=== PATIENT | female | born 1980 | race Asian ===

== ENCOUNTER 2022-07-26 08:41 | Outpatient (CLI) | payer OTHER, SELFPAY ==
[2022-07-26 14:36] LABS: Cholesterol* 179 mg/dL (90-199); Triglycerides* 120 mg/dL (40-149)
[2022-07-26 14:37] LABS: HDL Cholesterol* 41 mg/dL (>=50); LDL Cholesterol Calculated 114 mg/dL (<100)
== END 2022-07-26 08:42 | disposition home or self-care (01) ==
LOC: FRMREF 08:42
PROVIDERS: Visit Provider Registered Nurse
DX: E78.5 Hyperlipidemia, unspecified (principal)
CPT/HCPCS: 80061

== ENCOUNTER 2022-11-27 10:32 | Outpatient (CLI) | payer OTHER, SELFPAY ==
--- NOTE | 2022-11-27 10:45 | CRLHL7_ITS ---
For Patients: As a result of the Cures Act, medical imaging exams and procedure reports are released immediately into your electronic medical record. You may view this report before your referring provider. If you have questions, please contact your health care provider. DIGITAL DIAGNOSTIC BILATERAL MAMMOGRAM USING TOMOSYNTHESIS AND COMPUTER-AIDED DETECTION LEFT BREAST ULTRASOUND CLINICAL HISTORY: LEFT breast lump. COMPARISON: None. TECHNIQUE: Digital BILATERAL mammogram in four projections. Tomosynthesis and CAD utilized. Real-time ultrasound imaging of LEFT breast with imaging documentation. BREAST COMPOSITION: The breasts are heterogeneously dense, which may obscure small masses. FINDINGS: 3D CC/MLO BILATERAL mammogram images submitted. There is a circumscribed solid mass within the LEFT breast corresponding to the area of concern within the upper inner quadrant. No architectural distortion. No adenopathy. Normal RIGHT breast issue with incidental benign calcifications. Targeted LEFT breast ultrasound performed at 11 o`clock 5 cm from the nipple. There is a circumscribed anechoic simple cyst with increased through-transmission measuring 1.8 x 1.1 x 2.7 cm. A smaller adjacent cyst is present. IMPRESSION: Benign 2.7 cm cyst LEFT breast 11 o`clock 5 cm from nipple. No evidence of malignancy. RECOMMENDATIONS: Annual BILATERAL screening mammography. Results and recommendations discussed with the patient. BI-RADS Category 2: Benign A lay language report of this examination will be provided to the patient. Dictated by True Fernandez MD @ 11/27/2022 12:55:35 PM boj/Dictated by: True Fernandez MD @ 11/27/2022 12:55:00 PM (Electronically Signed)
--- NOTE | 2022-11-27 11:15 | CRLHL7_ITS ---
For Patients: As a result of the Cures Act, medical imaging exams and procedure reports are released immediately into your electronic medical record. You may view this report before your referring provider. If you have questions, please contact your health care provider. PLEASE SEE DIGITAL DIAGNOSTIC BILATERAL MAMMOGRAM PERFORMED SAME DAY CRL:max santana/Dictated by: True Fernandez MD @ 11/27/2022 12:56:00 PM (Electronically Signed)
== END 2022-11-27 10:33 | disposition home or self-care (01) ==
LOC: MAMMO 10:33
PROVIDERS: Visit Provider Physician Assistant
DX: N63.20 Unspecified lump in the left breast, unspecified quadrant (principal); N60.02 Solitary cyst of left breast
CPT/HCPCS: 76642; 77066; G0279

== ENCOUNTER 2024-05-07 14:32 | Outpatient (CLI) | payer OTHER, SELFPAY ==
--- NOTE | 2024-05-07 15:00 | CRLHL7_ITS ---
For Patients: As a result of the Century Cures Act, medical imaging exams and procedure reports are released immediately into your electronic medical record. You may view this report before your referring provider. If you have questions, please contact your health care provider. BILATERAL DIGITAL SCREENING MAMMOGRAM WITH COMPUTER-AIDED DETECTION AND TOMOSYNTHESIS CLINICAL HISTORY: Routine screening exam. COMPARISON: 11/27/2022, 01/05/2022. TECHNIQUE: Digital mammogram in CC and MLO projections including computer-aided detection (CAD). Tomosynthesis was used in this interpretation. BREAST COMPOSITION: The breasts are heterogeneously dense, which may obscure small masses. FINDINGS: RIGHT Breast: No suspicious findings. LEFT Breast: Nodular density within the medial LEFT breast 5 cm from the nipple, separate from the anechoic cyst previously evaluated. IMPRESSION: LEFT breast asymmetry/mass. RECOMMENDATIONS: LEFT breast ultrasound recommended. [facility] will contact the patient for follow-up. BI-RADS Category 0: Incomplete: Need Additional Imaging Evaluation and/or Prior Mammograms for Comparison. A lay language report of this examination will be provided to the patient. Dictated by True Fernandez MD @ 05/08/2024 10:03:36 AM /sp/leatha SP/Dictated by: True Fernandez MD @ 05/08/2024 10:03:00 AM (Electronically Signed)
== END 2024-05-07 14:33 | disposition home or self-care (01) ==
LOC: MAMMO 14:33
PROVIDERS: Visit Provider Registered Nurse
DX: Z12.31 Encounter for screening mammogram for malignant neoplasm of breast (principal); N63.20 Unspecified lump in the left breast, unspecified quadrant; R92.2 Inconclusive mammogram
CPT/HCPCS: 77063; 77067

== ENCOUNTER 2024-06-01 11:09 | Outpatient (CLI) | payer OTHER, SELFPAY ==
--- NOTE | 2024-06-01 11:15 | CRLHL7_ITS ---
For Patients: As a result of the Century Cures Act, medical imaging exams and procedure reports are released immediately into your electronic medical record. You may view this report before your referring provider. If you have questions, please contact your health care provider. LEFT BREAST ULTRASOUND CLINICAL HISTORY: LEFT breast nodule. COMPARISON: 05/07/2024, 11/27/2022. TECHNIQUE: Real-time ultrasound imaging of LEFT breast with imaging documentation. Scanning was performed by both the technologist and the radiologist. FINDINGS: Targeted sonogram in the medial LEFT breast 9 o`clock 6 cm from the nipple performed. In this location there is a small hypoechoic structure measuring 8 x 4 x 7 mm. Adjacent simple cyst 11 o`clock 5 cm from the nipple is similar measuring 1.4 x 1.2 x 1.8 cm. IMPRESSION: Indeterminate hypoechoic nodular structure left breast 9 o`clock 6 cm from the nipple measuring 8 mm, possible complicated cyst versus solid nodule. RECOMMENDATIONS: Ultrasound-guided core needle biopsy. Results and recommendations were discussed with the patient at the time of the exam. BI-RADS: 4. Suspicious. A lay language report of this examination will be provided to the patient. Dictated by True Fernandez MD @ 06/01/2024 12:16:37 PM /sp SP/Dictated by: True Fernandez MD @ 06/01/2024 12:16:00 PM (Electronically Signed)
== END 2024-06-01 11:10 | disposition home or self-care (01) ==
LOC: US 11:11
PROVIDERS: Visit Provider Registered Nurse
DX: N63.20 Unspecified lump in the left breast, unspecified quadrant (principal); R92.8 Other abnormal and inconclusive findings on diagnostic imaging of breast
CPT/HCPCS: 76642

== ENCOUNTER 2024-07-06 07:55 | Outpatient (CLI) | payer OTHER, SELFPAY ==
--- NOTE | 2024-07-06 08:15 | CRLHL7_ITS ---
For Patients: As a result of the Century Cures Act, medical imaging exams and procedure reports are released immediately into your electronic medical record. You may view this report before your referring provider. If you have questions, please contact your health care provider. ULTRASOUND-GUIDED BREAST BIOPSY AND POST-BIOPSY DIGITAL MAMMOGRAM FOR BIOPSY MARKER PLACEMENT CLINICAL HISTORY: Indeterminate nodule. COMPARISON STUDIES: 07/06/2024. TECHNIQUE: Real-time ultrasound with image documentation was used for targeting the breast lesion. Core biopsy specimens were obtained using an automated gun with an 18-gauge biopsy needle. Post-biopsy CC and ML digital mammograms were obtained to document position of the biopsy marker. CONSENT and TIME OUT: The procedure, risks, and alternatives were explained to the patient and a consent was signed. [place] Protocol was followed including pre-procedure verification that relevant information/documentation was available, reviewed and properly matched to the patient; consent accurate and complete; and equipment and supplies available. Time Out was conducted just prior to starting procedure to verify the four required elements: patient identity, correct side/site marked (if applicable), procedure, relevant images/results properly labeled and displayed (if applicable). PROCEDURE: The patient was positioned supine on the ultrasound table. The breast was prepped with ChloraPrep. 5 cc of 1 percent lidocaine was used for local anesthesia. Core samples were obtained. A sterile metal biopsy clip was placed percutaneously to juan daniel the lesion position within the breast. The specimens were placed in 10% formalin and sent to the pathology department. Pressure was held on the biopsy site until all bleeding subsided. The skin incision was closed with Steri-Strips. An ice pack was positioned over the biopsy site. Post-biopsy instructions were reviewed with the patient, and a written copy was given to her. LATERALITY: LEFT breast. LESION: Hypoechoic structure measuring 7 x 4 x 8 millimeters at 9 o`clock 6 cm from the nipple. SUSPICION FOR MALIGNANCY: Low. NUMBER OF SAMPLES: 3, biopsy terminated at this point due to venous bleeding. Hemostasis obtained without further complication. BIOPSY CLIP SHAPE: Oval. PROXIMITY OF CLIP TO TARGET: Adjacent to the lesion. IMPRESSION: Ultrasound-guided breast biopsy. When the pathology report is available, an addendum to this report will be made. ACR not applicable Dictated by True Fernandez MD @ 07/06/2024 12:46:25 PM boj/Dictated by: True Fernandez MD @ 07/06/2024 12:46:00 PM (Electronically Signed)
--- NOTE | 2024-07-06 09:00 | CRLHL7_ITS ---
For Patients: As a result of the Century Cures Act, medical imaging exams and procedure reports are released immediately into your electronic medical record. You may view this report before your referring provider. If you have questions, please contact your health care provider. PLEASE SEE ULTRASOUND-GUIDED LEFT BREAST BIOPSY PERFORMED SAME DAY CRL:max santana/Dictated by: True Fernandez MD @ 07/06/2024 12:46:00 PM (Electronically Signed)
== END 2024-07-06 07:56 | disposition home or self-care (01) ==
LOC: US 07:56
PROVIDERS: Visit Provider Registered Nurse
DX: N63.20 Unspecified lump in the left breast, unspecified quadrant (principal); N62 Hypertrophy of breast; R92.8 Other abnormal and inconclusive findings on diagnostic imaging of breast
CPT/HCPCS: 19083; 77065; 88305; A4648; A4649

== ENCOUNTER 2024-08-20 09:19 | Outpatient (CLI) | payer OTHER, SELFPAY ==
[2024-08-20 15:36] LABS: Chlamydia DNA Amplified* NOT DETECTED (No Detected); GC DNA Amplified* NOT DETECTED (No Detected)
== END 2024-08-20 09:20 | disposition home or self-care (01) ==
LOC: FRMREF 09:19
PROVIDERS: Visit Provider Registered Nurse
DX: Z11.3 Encounter for screening for infections with a predominantly sexual mode of transmission (principal)
CPT/HCPCS: 87491; 87591